=== PATIENT | female | born 1955 | race Two or more races ===

== ENCOUNTER → 2018-03-10 | Outpatient (CLI) | payer BC ==
[2014-06-22 12:29] VITALS: BP 165/70
--- NOTE | 2018-03-10 12:56 | KCIC ---
Bilateral digital screening mammograms: Reason for examination: Routine screening. Comparison is made to previous studies dated 02/04/2017 and 01/30/2016. Interpretation is made with the benefit of CAD. The skin and nipples show no abnormalities. No abnormal lymph nodes are seen. The breast parenchyma is predominantly fatty. (Breast density: Category A.) There are no dominant masses, suspicious calcifications or architectural distortions. Impression: No evidence of malignancy. Recommend routine screening. BI-RADS Category 1: Negative. "Our facility is accredited by the [employer] Mammography [employer]." This patient's information has been entered into a reminder system for the patient to be notified with the results of her examination and a target date for the next mammogram. Electronically signed by: Aneta Gonzales MD (03/10/2018 12:52 PM) [id number]
== END | disposition home or self-care (01) ==
LOC: KCIC MAMMO 08:47
PROVIDERS: ATTEND Family Medicine
DX: Z12.31 Encounter for screening mammogram for malignant neoplasm of breast (principal)
CPT/HCPCS: 77067

== ENCOUNTER → 2019-03-12 | Outpatient (CLI) | payer BC ==
[2014-06-22 12:29] VITALS: BP 165/70
--- NOTE | 2019-03-12 12:34 | KCIC ---
Bilateral digital screening mammograms: Reason for examination: Routine screening. Comparison is made to previous studies dated 03/10/2018 and 02/04/2017. Interpretation is made with the benefit of CAD. The skin and nipples show no abnormalities. No abnormal lymph nodes are seen. The breast parenchyma is predominantly fatty. (Breast density: Category A.) There are no dominant masses, suspicious calcifications or architectural distortions. Impression: No evidence of malignancy. Recommend routine screening. BI-RADS Category 1: Negative. "Our facility is accredited by the [employer] Mammography [employer]." This patient's information has been entered into a reminder system for the patient to be notified with the results of her examination and a target date for the next mammogram. Electronically signed by: Aneta Gonzales MD (03/12/2019 12:32 PM) [id number]
== END | disposition home or self-care (01) ==
LOC: KCIC MAMMO 11:04
PROVIDERS: ATTEND Family Medicine
DX: Z12.31 Encounter for screening mammogram for malignant neoplasm of breast (principal)
CPT/HCPCS: 77067

== ENCOUNTER → 2020-03-13 | Outpatient (CLI) | payer BC ==
[2014-06-22 12:29] VITALS: BP 165/70
--- NOTE | 2020-03-13 18:36 | KCIC ---
BILATERAL SCREENING MAMMOGRAM History: Routine screening. Comparison: Bilateral mammogram March 12. Technique: Routine bilateral digital mammogram views were obtained. Findings: Breast Tissue Density A : The breasts are almost entirely fatty. There are no dominant masses, suspicious microcalcifications, or architectural distortion. IMPRESSION: No mammographic evidence of malignancy. Recommend routine screening. BI-RADS category 1: Negative. The images were reviewed with computer aided detection. Patient information is entered into the reminder system with a target due date for the next screening mammogram. Mammography is the most sensitive method for finding small breast cancers, but it does not detect the m all and is not a substitute for careful clinical examination. A negative mammogram does not negate a clinically suspicious finding and should not result in delay in biopsying a clinically suspicious a bnormality. "Our facility is accredited by the [employer] Mammography [employer]." Electronically signed by: Thiago Comer MD (03/13/2020 6:34 PM) [id number]
== END ==
LOC: KCIC MAMMO 08:38
PROVIDERS: ATTEND Family Medicine
DX: Z12.31 Encounter for screening mammogram for malignant neoplasm of breast (principal)
CPT/HCPCS: 77067

== ENCOUNTER → 2020-05-29 | Outpatient (CLI) | payer BC ==
[2014-06-22 12:29] VITALS: BP 165/70
--- NOTE | 2020-05-29 13:32 | KCIC ---
Ultrasound of the left inferior chest/upper abdominal wall May 29, 2020 CLINCAL HISTORY: Palpable lump in the inferior anterior left chest wall/upper abdomen. TECHNIQUE: A real-time ultrasound examination of the anterior inferior left chest wall/upper abdomina l wall in the area where the patient feels a palpable abnormality was performed. Multiple images were obtained. FINDINGS: Within the subcutaneous fat in the area where the patient feels a palpable abnormality, an oval-shaped mass is seen which measures 1.8 cm in greatest diameter. It is well-defined and slightly hyperechoic. It is felt to most likely represent a lipoma. It is approximately 3 mm deep to the skin surface. IMPRESSION: 1.8 cm probable lipoma is seen which corresponds to the patient's palpable abnormality. Electronically signed by: Mayur Mckeon MD (05/29/2020 1:30 PM) [id number]
== END ==
LOC: KCIC US 08:37
PROVIDERS: ATTEND Physician Assistant Medical
DX: R19.00 Intra-abdominal and pelvic swelling, mass and lump, unspecified site (principal)
CPT/HCPCS: 76705

== ENCOUNTER → 2021-03-19 | Outpatient (CLI) | payer BC ==
[2014-06-22 12:29] VITALS: BP 165/70
--- NOTE | 2021-03-19 10:25 | KCIC ---
Bilateral digital screening mammograms: Reason for examination: Routine screening. Comparison is made to previous studies dated back to 01/24/2015 Interpretation is made with the benefit of CAD. The skin and nipples show no abnormalities. No abnormal lymph nodes are seen. The breast parenchyma i s predominantly fatty. (Breast density: Category A.) There are no dominant masses, suspicious calcifi cations or architectural distortions. Impression: No evidence of malignancy. Recommend routine screening. BI-RADS Category 1: Negative. "Our facility is accredited by the [employer] Mammography [employer]." This patient's information has been entered into a reminder system for the patient to be notified wit h the results of her examination and a target date for the next mammogram. Electronically signed by: Aneta Gonzales MD (03/19/2021 10:22 AM) [id number]
== END ==
LOC: KCIC MAMMO 09:06
PROVIDERS: ATTEND Family Medicine
DX: Z12.31 Encounter for screening mammogram for malignant neoplasm of breast (principal)
CPT/HCPCS: 77067